=== PATIENT | female | born 1985 | race Caucasian/White ===

== ENCOUNTER 2017-10-22 11:30 | Inpatient (IN) | payer OTHER, SELFPAY ==
[2017-10-22 12:26] LABS: Hematocrit 38.1 % (37-47); Mean Corp Hgb Conc 34.1 g/gl (32-36); Mean Corpuscular Hgb 29.5 pg (27.0-32.0); Mean Corpuscular Volume 86.6 fL (81-99); Platelet Count 203 K/mm3 (150-450); RBC Distribution Width CV 21.5 % (11.6-14.6); RBC Distribution Width SD 64.6 fl (35.1-43.9); White Blood Count 6.6 K/mm3 (4.4-11.0)
[2017-10-22 12:27] LABS: Scan Indicated on CBC? Y/N YES- FLAGS NOTED
[2017-10-22 12:28] VITALS: BMI 39.4
[2017-10-22] MEDS: Lactated Ringers 1,000 ML 50 ML IV ×2 (12:30→14:56)
[2017-10-22] MEDS: miSOPROStol 25 MCG TABLET VAGINAL ×2 (13:09→17:17)
[2017-10-22 14:04] LABS: AST(SGOT) 9 U/L (15-37); Alanine Aminotransfer ALT/SGPT 8 U/L (13-56); Creatinine, Serum 0.57 mg/dL (0.55-1.02); EST Glomerular Filtration Rate 128 mL/min (>60); Est Glom Filt Rate - Afr Amer 155 mL/min (>60); Estimated Creatinine Clearance 99.89 ml/min; Uric Acid 6.1 mg/dL (2.6-6.0)
[2017-10-22 14:14] LABS: Protein, Urine (Random) 34.7 mg/dL (<11.9); Protein:Creat Ratio 205 mg/g CRE (0-200)
[2017-10-22 14:36] LABS: International Normalized Ratio 1.1; Prothrombin Time (Protime)PT. 13.7 SECONDS (11.7-14.9)
[2017-10-22 14:37] LABS: Partial Thromboplast Time 27.6 Seconds (24.1-36.2)
[2017-10-22] MEDS: fentaNYL-bupivacaine (epidural) 100 ML BAG EPIDURAL (19:56)
[2017-10-22] MEDS: Lactated Ringers 1,000 ML 150 ML IV (20:05)
[2017-10-22] MEDS: proMETHazine 25 MG/ML Syringe IV (20:39)
--- NOTE | 2017-10-22 20:41 | PCM.HP.OB ---
History Date of Admission: 10/22/17 Final SYLWIA: 10/31/17 Final SYLWIA Source: US <20 weeks Gestational age: 38 Weeks and 5 Days History of this : @ 38.5 wks with elevated BP in office on two separate occasions, elevated Uric acid but otherwise labs are unremarkable. Decision made for IOL due to Gestational HTN and Polyhydramnios. pt is dated by her LMP c/s first trimester u/s. Allergies No Known Allergies Allergy (Verified 10/22/17 12:29) Current Medications Acetaminophen (Tylenol) 325 - 650 mg PO Q4H PRN PRN PRN Reason: PAIN OR FEVER >100.4F Al Hydroxide/Mg Hydroxide (Mylanta Ii) 15 - 30 ml PO Q4H PRN PRN PRN Reason: INDIGESTION Citric Acid/Sodium Citrate (Bicitra) 30 ml PO UD PRN Lactated Ringer's () 1,000 mls @ 50 mls/hr IV .Q20H [facility] Last Admin: 10/22/17 14:56 Dose: 50 mls/hr Misoprostol (Cytotec) 25 mcg VAGINAL Q4H [facility] Stop: 10/23/17 10:01 Last Admin: 10/22/17 17:17 Dose: 25 mcg Nalbuphine HCl (Nubain) 5 - 10 mg IV Q3H PRN PRN PRN Reason: PAIN (4-10/10) Ondansetron HCl (Zofran) 4 mg IV Q8H PRN PRN PRN Reason: NAUSEA Promethazine HCl (Phenergan) 6.25 - 12.5 mg IV Q4H PRN PRN; Protocol PRN Reason: IF NAUSEA PERSISTS Sodium Chloride () 5 - 15 ml IV UD [facility] Last Admin: 10/22/17 14:56 Dose: Not Given Smoking Status: Never smoker Alcohol: None Drug Use: none Number of Fetus(es): 1 Review of Systems Eyes: Denies: Blurred vision, Vision Change HEENT: Denies: Head Aches Cardiovascular: Denies: Chest Pain Physical Exam General: Alert, Oriented x3 Abdomen: Soft, Non Tender, Gravid Estimated gestational size: Large for gestational age Presentation: Cephalic Cervix Dilation (cm): 0 Station: -3 Effacement (%): 50 Assessment/Plan 32yo @ 38.5 wks with Gestational HTN, polyhydramnios for IOL 1) admit to LD& 2) monitor FHR/TOCO 3) Cytotec 4) Labs reviewed- GBS neg, HIV neg, Hep B neg, rub imm, syhpilis neg, O+ 5) epidural for pain mgmt
--- NOTE | 2017-10-22 20:45 | HP.PCM_ITS ---
History Date of Admission: 10/22/17 Final SYLWIA: 10/31/17 Final SYLWIA Source: US <20 weeks Gestational age: 38 Weeks and 5 Days History of this : @ 38.5 wks with elevated BP in office on two separate occasions, elevated Uric acid but otherwise labs are unremarkable. Decision made for IOL due to Gestational HTN and Polyhydramnios. pt is dated by her LMP c/s first trimester u /s. Allergies No Known Allergies Allergy (Verified 10/22/17 12:29) Current Medications Acetaminophen (Tylenol) 325 - 650 mg PO Q4H PRN PRN PRN Reason: PAIN OR FEVER >100.4F Al Hydroxide/Mg Hydroxide (Mylanta Ii) 15 - 30 ml PO Q4H PRN PRN PRN Reason: INDIGESTION Citric Acid/Sodium Citrate (Bicitra) 30 ml PO UD PRN Lactated Ringer's () 1,000 mls @ 50 mls/hr IV .Q20H [facility] Last Admin: 10/22/17 14:56 Dose: 50 mls/hr Misoprostol (Cytotec) 25 mcg VAGINAL Q4H [facility] Stop: 10/23/17 10:01 Last Admin: 10/22/17 17:17 Dose: 25 mcg Nalbuphine HCl (Nubain) 5 - 10 mg IV Q3H PRN PRN PRN Reason: PAIN (4-10/10) Ondansetron HCl (Zofran) 4 mg IV Q8H PRN PRN PRN Reason: NAUSEA Promethazine HCl (Phenergan) 6.25 - 12.5 mg IV Q4H PRN PRN; Protocol PRN Reason: IF NAUSEA PERSISTS Sodium Chloride () 5 - 15 ml IV UD [facility] Last Admin: 10/22/17 14:56 Dose: Not Given Smoking Status: Never smoker Alcohol: None Drug Use: none Number of Fetus(es): 1 Review of Systems Eyes: Denies: Blurred vision, Vision Change HEENT: Denies: Head Aches Cardiovascular: Denies: Chest Pain Physical Exam General: Alert, Oriented x3 Abdomen: Soft, Non Tender, Gravid Estimated gestational size: Large for gestational age Presentation: Cephalic Cervix Dilation (cm): 0 Station: -3 Effacement (%): 50 Assessment/Plan 32yo @ 38.5 wks with Gestational HTN, polyhydramnios for IOL 1) admit to LD& 2) monitor FHR/TOCO 3) Cytotec 4) Labs reviewed- GBS neg, HIV neg, Hep B neg, rub imm, syhpilis neg, O+ 5) epidural for pain mgmt
--- NOTE | 2017-10-22 20:45 | PCM.PN.BLA ---
Progress Note called for FHR variable decelerations and bulging membranes- on exam membranes ruptured- light to moderate meconium noted. 8/100/-1. IFM placed. will continue to monitor- anticipate . epidural in place and patient is comfortable.
[2017-10-22] MEDS: Amnioinfusion- 0.9% NS 1,000 ML IV.SOLN. INTRA-UTER (21:18)
[2017-10-22] MEDS: Cefazolin 2 GM in 0.9% Normal Saline 100 ML IV (21:40)
[2017-10-22] MEDS: Oxytocin 30 units/NS 500 ml 30 UNITS/500 ML IV.SOLN 167 UNITS IV (21:40)
[2017-10-22] MEDS: Lactated Ringers 1,000 ML 100 ML IV (22:00)
--- NOTE | 2017-10-22 22:18 | OP.PCM_ITS ---
Delivery Classification: Stat Final SYLWIA: 10/31/17 Gestational age: 38 Weeks and 5 Days Indications: pt progressed to Fully dilated was having prolonged decelerations down to 60bpm station -1 position. attempted to push but Fetus did not tolerate. decision for Stat C/s called and OR team was mobilized at 2124 hrs. Indications for : Nonreassuring Status - prolonged decelerations Description of Procedure: Surgeon: Dr. Yvrose Ross Manufacturer'S Service Representative: Preeti Browning RN until Felicity COHEN arrived Preoperative diagnosis: Non reassuring heart rate- Prolonged decelerations Postoperative diagnosis: same, Live male infant Findings: Live male born at 2138hrs, Nuchal x 3 noted. Light to moderate meconium Anesthesia: epidural Complications: None Estimated blood loss:900 Implantable devices: None Pre OP abx: Ancef 2gram, Zithromax 500mg IV given after start of procedure Operative note: After informed consent was obtained the patient was taken the operating room. She was then placed in the supine position. She was prepped and draped in the normal sterile fashion. Anesthesia was found to be adequate. At this time a Pfannenstiel skin incision was made with a knife was carried down to the underlying layer of the fascia. The fascial incision was then extended laterally using curved Roberts scissor. Attention was then turned to the superior aspect of the fascial edge which was grasped with 2 straight [place] clamps tented up and the rectus muscle dissected off sharply using curved Roberts scissor. Attention was then turned to the inferior aspect where again Aurelia clamps were placed in the rectus muscles were tented up and the fascia was dissected off sharply using the curved Roberts scissor. Rectus muscles were then in the midline bluntly and peritoneum was entered bluntly. Gentle opposing traction was placed. At this time the vesicouterine peritoneum was identified. Scalpel was used to make a uterine incision in a low transverse fashion. The uterus was then entered bluntly gentle opposing traction was placed to extend this incision. Meconium fluid still noted. 's head was brought to the uterine incision nuchal x 3 was reduced and then head was delivered atraumatically. Cord was clamped and cut infant was handed to the waiting nursery team. The Placenta was removed from the uterus. The uterus was then removed from the abdominal cavity. The uterus was cleared of all clots and debris using a lap. At this time the uterine incision was reapproximated using #1 Vicryl in a running locked fashion followed by a second imbricating layer with #1 vicryl. Hemostasis was appreciated. Posterior cul-de- sac was then cleared of all clots and debris. Uterus was placed back in the abdominal cavity. Gutters were cleared of all clots and debris. Uterine incision was reevaluated and noted to be of excellent hemostasis. Matt placed. At this time the peritoneum was grasped with Kellys reapproximated using #2 Vicryl suture in a running fashion. Muscles then reapproximated using #2 Vicryl in a interrupted mattress suture fashion. Matt placed. Fascia was then reapproximated using #1 Vicryl in a running fashion. Matt placed in subcutaneous layer. then the Subcu layer was reapproximated with #2 0 plain gut suture in an interrupted fashion. Skin was was closed using 4-0 Monocryl in subq fashion. Dry sterile dressing was applied. Instrument lap needle count correct ?2. Anticipated normal postoperative course. Amniotic Membrane Rupture Type: Artificial - ruptured at time of vaginal exam Amniotic Fluid Description: Lightly stained meconium, Moderate meconium Placenta Disposition: [facility] Drain: Tracy to straight drain Cord Entanglement: - - Nuchal x 3, tight Nuchal Cord Compression: With compression Cord Vessel Description: 3 Vessels Esitmated Blood Loss (ml): 900 Gender: Male (1 minute): 8 (5 minute): 9 Delayed cord clamping: No Pre-op Antibiotic Given: - - zithromax 500mg given after start of surgery Pt instructed on risks of surgery: Bleeding, Anesthesia Risks, Infection, Injury to surrounding structure(s) including bowel and bladder Complications: None - Admit VTE Documentation VTE Present on Admission: Yes VTE Mechan Device Prophylaxis: SCD's VTE Pharm Prophylaxis ordered?: No
[2017-10-22 22:40] VITALS: BP 120/68; BP 124/57; PULSE 98; RESP 18; TEMP 36.7; O2SAT 98
[2017-10-22 23:00] VITALS: BP 118/66; BP 120/68; PULSE 109; RESP 18; TEMP 36.6; O2SAT 95
[2017-10-22 23:15] VITALS: BP 120/68; BP 122/74; PULSE 110; RESP 18; TEMP 37.2; O2SAT 95
[2017-10-22 23:30] VITALS: BP 112/82; BP 120/68; PULSE 93; RESP 16; TEMP 37.7; O2SAT 95
[2017-10-22 23:45] VITALS: BP 120/68; BP 129/62; PULSE 109; RESP 18; TEMP 37.3; O2SAT 94
[2017-10-23] VITALS (18 sets, daily range): BP systolic 109–144; BP diastolic 57–87; PULSE 92–102; RESP 16–18; TEMP 35.8–37.2; O2SAT 94–100
[2017-10-23] MEDS: Ondansetron 4 MG/2 ML Vial IV (02:58)
[2017-10-23 05:21] LABS: Hematocrit 31.6 % (37-47); Hemoglobin 10.7 g/dl (12.0-15.0); Mean Corp Hgb Conc 33.9 g/gl (32-36); Mean Corpuscular Hgb 29.7 pg (27.0-32.0); Mean Corpuscular Volume 87.8 fL (81-99); Mean Platelet Vol. 10.9 fl (6.2-12.0); Platelet Count 148 K/mm3 (150-450); RBC Distribution Width CV 21.5 % (11.6-14.6); RBC Distribution Width SD 64.8 fl (35.1-43.9); White Blood Count 10.3 K/mm3 (4.4-11.0)
[2017-10-23 05:23] LABS: Scan Indicated on CBC? Y/N YES- FLAGS NOTED
[2017-10-23] MEDS: Lactated Ringers 1,000 ML 100 ML IV ×2 (05:50→13:30)
[2017-10-23 05:55] LABS: Differential Comment SCAN
[2017-10-23] MEDS: Ketorolac 30 MG/ML Syringe IV ×3 (06:59→20:02)
--- NOTE | 2017-10-23 07:05 | PCM.PN.OB ---
Subjective: pt seen at bedside, doing well. pt reports good pain control. lochia mild. Denies CP, SOB, dizziness. breast feeding well. - Physical Exam General: Alert, Oriented x3 Abdomen: Soft, Non-Distended, - - fundus firm Extremities: No Calf Tenderness Vital Signs Temp Pulse Resp BP Pulse Ox 96.8 F L 96 18 124/86 H 94 10/23/17 06:40 10/23/17 06:40 10/23/17 06:40 10/23/17 06:40 10/23/17 06:40 Oxygen Delivery Method Room Air Weight: 91.716 kg Body Mass Index (BMI) 39.4 Intake and Output for Last 24 Hours 10/21/17 10/22/17 10/23/17 23:59 23:59 23:59 Intake Total 2246 / 2246 630 / 630 Output Total 330 / 330 Balance 2246 / 2246 300 / 300 Laboratory Tests Past 24 Hrs 10/22/17 10/22/17 10/22/17 12:00 12:00 13:30 WBC 6.6 RBC 4.40 Hgb 13.0 Hct 38.1 MCV 86.6 MCH 29.5 MCHC 34.1 RDW 21.5 H RDW Differential 64.6 H Plt Count 203 MPV 11.0 Differential Comment PT Cancelled INR Cancelled APTT Cancelled Creatinine Estim Creat Clear Calc Est GFR (MDRD) Af Amer Est GFR (MDRD) Non-Af Uric Acid AST ALT U Random Total Protein Urine Creatinine Protein/Creatinin Ratio Blood Type O POSITIVE Antibody Screen NEGATIVE 10/22/17 10/22/17 10/22/17 13:30 13:30 14:10 WBC RBC Hgb Hct MCV MCH MCHC RDW RDW Differential Plt Count MPV Differential Comment PT 13.7 INR 1.1 APTT 27.6 Creatinine 0.57 Estim Creat Clear Calc 99.89 Est GFR (MDRD) Af Amer 155 Est GFR (MDRD) Non-Af 128 Uric Acid 6.1 H AST 9 L ALT 8 L U Random Total Protein 34.7 H Urine Creatinine 169.00 Protein/Creatinin Ratio 205 H Blood Type Antibody Screen 10/23/17 05:00 WBC 10.3 RBC 3.60 L Hgb 10.7 L Hct 31.6 L MCV 87.8 MCH 29.7 MCHC 33.9 RDW 21.5 H RDW Differential 64.8 H Plt Count 148 L MPV 10.9 Differential Comment SCAN PT INR APTT Creatinine Estim Creat Clear Calc Est GFR (MDRD) Af Amer Est GFR (MDRD) Non-Af Uric Acid AST ALT U Random Total Protein Urine Creatinine Protein/Creatinin Ratio Blood Type Antibody Screen Medical Necessity - Tobacco Use Smoking Status: Never smoker Assessment/Plan POD#1, doing well routine care pain mgmt ambulation dc pope in evening regular diet
[2017-10-23] MEDS: Citalopram 20 MG Tablet PO (10:38)
[2017-10-23] MEDS: Loratadine 10 MG Tablet PO (10:38)
[2017-10-23] MEDS: 0.9% Saline Lock 10 ML Syringe IV ×2 (13:25→20:10)
[2017-10-23] MEDS: Ondansetron ODT 4 MG Tablet PO (13:37)
[2017-10-24] MEDS: Ketorolac 30 MG/ML Syringe IV ×4 (01:39→19:53)
[2017-10-24] MEDS: 0.9% Saline Lock 10 ML Syringe IV ×4 (01:40→19:57)
[2017-10-24 02:00] VITALS: BP 139/91; PULSE 83; RESP 16; TEMP 36.8
[2017-10-24 08:00] VITALS: BP 128/82; PULSE 95; RESP 18; TEMP 36.6; O2SAT 95
--- NOTE | 2017-10-24 09:01 | PCM.PN.OB ---
Subjective: pt seen at bedside, doing well. pt reports good pain control. lochia mild. Breast feeding. pt reports tolerating regular diet. passing flatus. - Physical Exam General: Alert, Oriented x3 Abdomen: Soft, Non-Distended, - - fundus firm. dressing site dry and intact Extremities: No Calf Tenderness Vital Signs Temp Pulse Resp BP Pulse Ox 97.8 F 95 18 128/82 H 95 10/24/17 08:00 10/24/17 08:00 10/24/17 08:00 10/24/17 08:00 10/24/17 08:00 Oxygen Delivery Method Room Air Weight: 91.716 kg Body Mass Index (BMI) 39.4 Intake and Output for Last 24 Hours 10/22/17 10/23/17 10/24/17 23:59 23:59 23:59 Intake Total 2246 / 2246 670 / 670 Output Total 330 / 330 800 / 800 Balance 2246 / 2246 340 / 340 -800 / -800 Medical Necessity - Tobacco Use Smoking Status: Never smoker Assessment/Plan POD#2, doing well routine care pain mgmt
[2017-10-24] MEDS: Senna/Docusate Sodium 1 Tablet PO (10:14)
[2017-10-24] MEDS: Loratadine 10 MG Tablet PO (10:14)
[2017-10-24] MEDS: Citalopram 20 MG Tablet PO (10:14)
[2017-10-24 13:50] VITALS: BP 129/87; PULSE 100; RESP 16; TEMP 36.2; O2SAT 95
[2017-10-24 19:59] VITALS: BP 135/87; PULSE 91; RESP 17; TEMP 36.4; O2SAT 96
--- NOTE | 2017-10-24 20:12 | NURSING ---
@ 2000 incision dressing removed for being saturated with water after pt took shower.
[2017-10-24] MEDS: oxyCODONE 5 MG Tablet PO (21:30)
[2017-10-25] MEDS: Ketorolac 30 MG/ML Syringe IV (02:05)
[2017-10-25] MEDS: oxyCODONE 5 MG Tablet PO ×2 (02:08→06:01)
[2017-10-25] MEDS: 0.9% Saline Lock 10 ML Syringe IV (02:09)
[2017-10-25 02:10] VITALS: BP 132/88; PULSE 87; RESP 18; TEMP 36.6; O2SAT 97
[2017-10-25 07:57] VITALS: BP 127/94; PULSE 98; RESP 16; TEMP 36.7; O2SAT 95
--- NOTE | 2017-10-25 08:56 | PCM.DC.SUM ---
Discharge Date and Diagnosis Date of Admission: 10/22/17 Date of Discharge: 10/25/17 - Primary Discharge Diagnosis Section Hospital Course and Treatment Consultations 10/22/17 11:43 Consult: Anesthesia Routine Comment: Reason For Exam: Operations: - - Section Summary of Care Provided: The patient is a 32 year old F [] Discharge Diet: No Restrictions Discharge Activity: May Not Drive, May not drive while taking narcotic pain medications., May Shower May resume sexual activity in: 6 weeks Weight Bearing Status: Weight bearing as tolerated Lifting Restrict to (lbs):: 10 Call your doctor if your incision/area has: Continuous Slow Oozing, Sudden Increased Bleeding, Increased Pain/ Swelling, Increased Redness, Foul Smelling Discharge, Swelling at the incision site Call your doctor if you observe: Fever of 101 or Higher, Coldness, Increased Pain, Numbness or Tingling, Change in Color, Inability to urinate, Inability to have a bowel movement, Using more than one pad per hour, Shortness of breath, Dizziness, Fainting spells, Swelling in the ankles, Chest pain, Prolonged hiccoughing, Increased palpitations (irregular heartbeat), Calf discomfort, Uncontrolled pain Suture Line Care: Avoid Pulling/Pushing, Avoid Pinching/Bending Cleanse incision/area with: Keep Dressing Clean & Dry Home Medications: Medications to take at Discharge Albuterol Inhaler [Ventolin Hfa] 2 puff INHALATION Q4H PRN PRN 04/15/17 Cetirizine HCl [Zyrtec] 10 mg PO DAILY 04/15/17 Citalopram [Celexa] 20 mg PO DAILY 04/15/17 Omeprazole [Prilosec] 20 mg PO DAILY 04/15/17 Vits [Prenatabs FA ] 1 tablet PO DAILY 04/15/17 Albuterol Aerosols [Ventolin Aerosols] 2.5 mg INHALATION Q4H PRN PRN vial.neb. 10/24/17 Loratadine [Claritin] 10 mg PO DAILY tablet 10/24/17 Naproxen [Naprosyn] 250 - 500 mg PO Q8H PRN PRN #30 tab 10/24/17 Oxycodone HCl/Acetaminophen [Percocet 5/325] 1 tab PO Q6H PRN PRN 7 Days #28 tab 10/24/17 Senna/Docusate Sodium [Senokot-S] 1 tab PO DAILY PRN #30 tab 10/24/17 SimETHICONE [Mylicon] 80 mg PO PCHS PRN #30 tab 10/24/17 Following Prescrptions Were Given to Patient: Oxycodone HCl/Acetaminophen [Percocet 5/325] 1 tab PO Q6H PRN PRN 7 Days #28 tab PRN Reason: Pain Naproxen [Naprosyn] 250 - 500 mg PO Q8H PRN PRN #30 tab PRN Reason: Mild Pain (-09/18) Senna/Docusate Sodium [Senokot-S] 1 tab PO DAILY PRN #30 tab PRN Reason: Constipation SimETHICONE [Mylicon] 80 mg PO PCHS PRN #30 tab PRN Reason: Indigestion/stomach pain Please Follow Up With: Yvrose Ross MD When: 2 weeks for incision check, 6 weeks for visit Disposition: Home Medical Necessity - Tobacco Use Smoking Status: Never smoker Meaningful Use Info Meaningful Use Diagnoses (Choose all that apply): None applicable
--- NOTE | 2017-10-25 09:00 | PCM.PROGNOTE ---
Subjective: Doing well per patient and nursing staff. Ambulating and taking PO without difficulty. Voiding and passing flatus. . Denies any headache, visual changes, chest pain, shortness of breath, leg pain, incisional pain or increased bleeding. Planning D/C home today. - Physical Exam General: Alert, Oriented x3, Cooperative Lungs: Clear to auscultation, Normal air movement, No rhonchi, No wheeze Cardiovascular: Regular rate, Regular Rhythm, No murmurs Abdomen: Bowel Sounds Present, Soft, Non Tender, - - Fundus firm 2 below U. Incision well appoximated with suture, dressing removed. Extremities: - - +1 edema to BLE. Zbigniew's negative. Neurological: Deep Tendon Reflexes 2+/4 and Symmetrical Psych/Mental Status: Normal Affect, Appropriate Vital Signs Temp Pulse Resp BP Pulse Ox 98.1 F 98 16 127/94 H 95 10/25/17 07:57 10/25/17 07:57 10/25/17 07:57 10/25/17 07:57 10/25/17 07:57 Oxygen Delivery Method Room Air Weight: 202 lb 3.2 oz Body Mass Index (BMI) 39.4 Intake and Output for Last 24 Hours 18 //18 10/25/17 23:59 23:59 23:59 Intake Total 670 / 670 Output Total 330 / 330 800 / 800 Balance 340 / 340 -800 / -800 Medical Necessity - Tobacco Use Smoking Status: Never smoker Assessment/Plan A: POD #2 for Section due to intolerance of labor P: 1) Discharge and instructions given. Planning D/C home today 2) Return in 2 weeks for incision and BP check. Return in 6 weeks for visit.
[2017-10-25] MEDS: Loratadine 10 MG Tablet PO (11:11)
[2017-10-25] MEDS: Citalopram 20 MG Tablet PO (11:12)
[2017-10-25] MEDS: Senna/Docusate Sodium 1 Tablet PO (11:12)
--- NOTE | 2017-10-25 12:06 | NURSING ---
1000 agree with student's assessment. Discharge talk done. Dr. Merritt states pt does not have to wait for Social service consult.
== END 2017-10-25 11:30 | disposition home or self-care (01) | DRG 765 ==
PROVIDERS: Admitting Provider Obstetrics & Gynecology; Family Provider Family Medicine; PCP Family Medicine; Visit Provider Obstetrics & Gynecology
DX: O76 Abnormality in fetal heart rate and rhythm complicating labor and delivery (principal); O34.33 Maternal care for cervical incompetence, third trimester; O14.94 Unspecified pre-eclampsia, complicating childbirth; O40.3XX0 Polyhydramnios, third trimester, not applicable or unspecified; O77.0 Labor and delivery complicated by meconium in amniotic fluid; O69.1XX0 Labor and delivery complicated by cord around neck, with compression, not applicable or unspecified; O99.013 Anemia complicating pregnancy, third trimester; D64.9 Anemia, unspecified; O99.513 Diseases of the respiratory system complicating pregnancy, third trimester; J45.909 Unspecified asthma, uncomplicated; O99.343 Other mental disorders complicating pregnancy, third trimester; F41.9 Anxiety disorder, unspecified; O99.613 Diseases of the digestive system complicating pregnancy, third trimester; K21.9 Gastro-esophageal reflux disease without esophagitis; O99.353 Diseases of the nervous system complicating pregnancy, third trimester; G47.419 Narcolepsy without cataplexy; Z3A.38 38 weeks gestation of pregnancy; Z37.0 Single live birth
CPT/HCPCS: 59025; 59050; 82565; 82570; 84156; 84450; 84460; 84550; 85027; 85610; 85730; 86850; 86900; 99218; J7030; J7120; A4216; G0378; J2405

== ENCOUNTER 2017-10-26 11:20 | Outpatient (CLI) | payer OTHER, SELFPAY | END 2017-10-26 13:00 | disposition home or self-care (01) | LOC: WPOUT 11:39 → WP 11:41 | PROVIDERS: Family Provider Family Medicine; PCP Family Medicine; Visit Provider Obstetrics & Gynecology | DX: Z39.1 Encounter for care and examination of lactating mother (principal) | CPT/HCPCS: 96152 ==

== ENCOUNTER 2017-10-29 21:03 | Inpatient (IN) | payer OTHER, SELFPAY ==
--- NOTE | 2017-10-29 22:29 | PCM.HP.OB ---
- Problem List (1) Pre-eclampsia, Status: Acute History Date of Admission: 10/29/17 Pertinent Past Medical History: Patient induced for gestational HTN and delivered via section due to intolerance of labor on 10/22/17. Upon discharge no signs of pre-eclampsia and BP 127/94. 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 Ate good throughout the day, urination as normal, and no other complaints. took BP at home and was 136/90. Patient did not take any Tylenol for headache and advised to take 2 extra strength Tylenol. If no improvement in headache to come to ER. Consulted and agreed with plan. Patient then took patient BP approximately 15 minutes later and BP was in the 150 systolic and came to ER. Upon arrival in ER BP was 160/116 and patient transported up to labor and delivery unit. Patient denies any current visual changes, scotoma, chest pain, shortness of breath, or right upper quadrant pain. present with baby. Allergies No Known Allergies Allergy (Verified 10/22/17 12:29) Smoking Status: Never smoker Alcohol: None Drug Use: none Review of Systems Constitutional: Denies: Chills, Fever, Weight Change Eyes: Denies: Blurred vision HEENT: Reports: Head Aches - Rating pain 4-5/10. No improvement with Ibuprofen, rest, and hydration. Cardiovascular: Denies: Chest Pain, Palpitations Respiratory: Denies: Cough, Shortness of breath at rest, Sputum production Gastrointestinal: Reports: Nausea. Denies: Abdominal Pain, Vomiting Genitourinary: Denies: Dysuria Neurological: Denies: Blurred vision, Focal weakness, Numbness, Tingling Physical Exam General: Alert, Oriented x3, No apparent distress Cardiovascular: Regular rate, Regular Rhythm, No murmurs Lungs: Clear to auscultation, No rhonchi, No wheeze Abdomen: Bowel Sounds Present, Non Tender, - - No RUQ pain Extremities:: Deep tendon reflexes - +3/4 bilatearlly brisk. Clonus +3 beats bilaterally. , Other - +1 BLE edema, non pitting. Assessment/Plan Active and Suspected Problems Pre-eclampsia, (Acute) A: pre-eclampsia Post op day 7 section P: 1) notified of patient with severe hypertension and patient statu. Consulted for referral of management of patient after initial evaluation. 2) Per to start HTN protocol. Initiate Magnesium Sulfate 6gm bolus then 2gm per hour for 24 hours. 3) Pre-Eclampsia labs Bertha Browning, MSN, FACTORY MACHINE COMPUTER OPERATOR, CNM
--- NOTE | 2017-10-29 22:34 | NURSING ---
Patient arrived reporting headache, feeling shaky, and lightheaded since 1600 today. Last BP at home was 158/110 per . Lila Browning at bedside to assess patient. Htn protocol initiated, RN attempting to gain iv access at this time.
[2017-10-29 22:37] VITALS: BMI 35.2
[2017-10-29] MEDS: Lactated Ringers 1,000 ML 15 ML IV (22:50)
[2017-10-29 22:56] VITALS: BP 157/93; PULSE 92; RESP 18; TEMP 36.6; O2SAT 99
[2017-10-29 23:15] VITALS: BP 160/94; PULSE 113; RESP 18; O2SAT 96
[2017-10-29 23:19] LABS: Protein, Urine (Random) 23.2 mg/dL (<11.9); Protein:Creat Ratio 141 mg/g CRE (0-200)
[2017-10-29 23:30] VITALS: BP 143/92; PULSE 111; RESP 16; TEMP 36.6; O2SAT 98
[2017-10-29 23:34] LABS: Hematocrit 38.5 % (37-47); Hemoglobin 12.9 g/dl (12.0-15.0); Mean Corp Hgb Conc 33.5 g/gl (32-36); Mean Corpuscular Hgb 29.3 pg (27.0-32.0); Mean Corpuscular Volume 87.5 fL (81-99); Mean Platelet Vol. 9.1 fl (6.2-12.0); Platelet Count 305 K/mm3 (150-450); RBC Distribution Width CV 20.2 % (11.6-14.6); RBC Distribution Width SD 63.4 fl (35.1-43.9); White Blood Count 7.9 K/mm3 (4.4-11.0)
[2017-10-29] MEDS: Magnesium Sulfate 20 GM/500 ML BAG IV (23:34)
[2017-10-29 23:35] LABS: Scan Indicated on CBC? Y/N YES- FLAGS NOTED
[2017-10-29 23:45] VITALS: BP 149/96; PULSE 102; RESP 16; O2SAT 99
[2017-10-30] VITALS (28 sets, daily range): BP systolic 107–152; BP diastolic 66–98; PULSE 75–100; RESP 16–18; TEMP 35.9–36.7; O2SAT 85–100
--- NOTE | 2017-10-30 | NURSING ---
Lila carrillo at rn station, all labs reviewed including elevated uric acid
[2017-10-30 00:09] LABS: AST(SGOT) 25 U/L (15-37); Alanine Aminotransfer ALT/SGPT 31 U/L (13-56); EST Glomerular Filtration Rate 122 mL/min (>60); Est Glom Filt Rate - Afr Amer 147 mL/min (>60); Uric Acid 6.7 mg/dL (2.6-6.0)
[2017-10-30] MEDS: proMETHazine 25 MG/ML Syringe 12.5 MG IV (00:37)
[2017-10-30 01:01] LABS: International Normalized Ratio 1.1; Prothrombin Time (Protime)PT. 14.3 SECONDS (11.7-14.9)
--- NOTE | 2017-10-30 08:25 | PCM.PN.OB ---
Patient Problems: Active and Suspected Problems Pre-eclampsia, (Acute) Subjective: Patient feeling better this am. She still has a mild headache but it's better. - Physical Exam General: Alert, Oriented x3 Abdomen: Soft, Non Tender, Non-Distended - incision - c/d/i Extremities: No edema, No Calf Tenderness Vital Signs Temp Pulse Resp BP Pulse Ox 97.1 F L 85 16 126/87 H 98 10/30/17 04:48 10/30/17 06:45 10/30/17 07:57 10/30/17 06:45 10/30/17 06:45 Oxygen Delivery Method Room Air Weight: 180 lb Body Mass Index (BMI) 35.2 Intake and Output for Last 24 Hours 10/28/17 10/29/17 10/30/17 23:59 23:59 23:59 Intake Total 165 / 165 440 / 440 Output Total 300 / 300 Balance 165 / 165 140 / 140 Laboratory Tests Past 24 Hrs 10/29/17 10/29/17 10/29/17 22:30 23:15 23:30 WBC 7.9 RBC 4.40 Hgb 12.9 Hct 38.5 MCV 87.5 MCH 29.3 MCHC 33.5 RDW 20.2 H RDW Differential 63.4 H Plt Count 305 MPV 9.1 Differential Comment 1+ ANISO PT Cancelled INR Cancelled APTT Cancelled Creatinine Estim Creat Clear Calc Est GFR (MDRD) Af Amer Est GFR (MDRD) Non-Af Uric Acid AST ALT U Random Total Protein 23.2 H Urine Creatinine 164.00 Protein/Creatinin Ratio 141 10/29/17 10/30/17 23:30 00:30 WBC RBC Hgb Hct MCV MCH MCHC RDW RDW Differential Plt Count MPV Differential Comment PT 14.3 INR 1.1 APTT 29.0 Creatinine 0.60 Estim Creat Clear Calc 94.90 Est GFR (MDRD) Af Amer 147 Est GFR (MDRD) Non-Af 122 Uric Acid 6.7 H AST 25 ALT 31 U Random Total Protein Urine Creatinine Protein/Creatinin Ratio Medical Necessity - Tobacco Use Smoking Status: Never smoker Assessment/Plan Active and Suspected Problems Pre-eclampsia, (Acute) 32yo female HD#2 re-admission for severe preeclampsia Continue Mg for 24hrs. BP's currently normal. All labs & vitals reviewed. Plan of care reviewed with patient & .
[2017-10-30] MEDS: Magnesium Sulfate 20 GM/500 ML BAG IV (10:48)
--- NOTE | 2017-10-30 13:29 | NURSING ---
at 1300 assessment, pt sleeping. arousable with name call, appropriate responses. P ox 90%. Peace carrillo CNM called and informed of 90%sat. O2 ordered to keep pox 95% or higher. O2 started at 2L per NC, Pox 96%. Explained to pt and reason for O2 and they state understanding.
--- NOTE | 2017-10-30 13:37 | NURSING ---
pt awake, nursing infant. Pox 99 with o2 off.
--- NOTE | 2017-10-30 14:23 | NURSING ---
1400 pox 92%. O2 added at 1L per NC. 1420 Pox 97% at 1 L
--- NOTE | 2017-10-30 14:30 | NURSING ---
1000 While rounding, Mom states that feedings have gone well and Mom is producing 3-4 oz's of milk. Parents very happy with how well she is doing with milk supply. Encouraged to call if any further questions or concerns with feedings. Tino FRANCISCO
[2017-10-30] MEDS: Acetaminophen 500 MG Tablet 1000 MG PO (16:34)
--- NOTE | 2017-10-30 20:50 | NURSING ---
Dr Parada updated on patient reporting blurry vision in both eyes and drooping eyes. Patient now needing assistance x2 to bathroom. Reflexes +1, Supplemental O2 used while sleeping. Orders received to discontinue Mg infusion, no PO maintenance medication ordered at this time. AM CBC canceled. Plan to call Dr parada if BP >160/110 overnight.
--- NOTE | 2017-10-30 22:54 | NURSING ---
Dr Huerta updated on patient. Aware of patient reporting burning in chest. Vitals stable. Eye drooping resolved. Patient states she is feeling better and feels pain is muscle related. Prilosec and mylanta ordered.
[2017-10-30] MEDS: Pantoprazole Sodium 20 MG Tablet PO (23:34)
[2017-10-31 02:20] VITALS: BP 111/86; PULSE 75; RESP 16; TEMP 36.4; O2SAT 96
[2017-10-31] MEDS: Acetaminophen 500 MG Tablet 1000 MG PO (02:38)
--- NOTE | 2017-10-31 05:45 | PCM.PN.OB ---
Patient Problems: Active and Suspected Problems Pre-eclampsia, (Acute) Subjective: Denies headache or blurry vision. - Physical Exam General: Alert, Oriented x3 Abdomen: Soft, Non Tender, Non-Distended Extremities: No Calf Tenderness Vital Signs Temp Pulse Resp BP Pulse Ox 97.6 F L 75 16 111/86 H 96 10/31/17 02:20 10/31/17 02:20 10/31/17 02:20 10/31/17 02:20 10/31/17 02:20 Oxygen Flow Rate (L/min) 1 Oxygen Delivery Method Room Air Weight: 180 lb Body Mass Index (BMI) 35.2 Intake and Output for Last 24 Hours 10/29/17 10/30/17 10/31/17 23:59 23:59 23:59 Intake Total 165 / 165 2401 / 2401 Output Total 2300 / 2300 Balance 165 / 165 101 / 101 Medical Necessity - Tobacco Use Smoking Status: Never smoker Assessment/Plan Active and Suspected Problems Pre-eclampsia, (Acute) HD#3 patient re-admitted with PP severe preeclampsia BP's normal s/p magnesium. Will monitor throughout the day. Possible discharge home later today if BP's remain normal.
[2017-10-31 05:50] VITALS: BP 111/65; PULSE 81; RESP 16; TEMP 36.6; O2SAT 97
--- NOTE | 2017-10-31 05:50 | NURSING ---
Patient now reports blurry vision, headache, and muscle weakness resolved.
--- NOTE | 2017-10-31 05:51 | DCINST_ITS ---
Discharge Diet: No Restrictions Discharge Activity: May not drive while taking narcotic pain medications., May Shower May resume sexual activity in: 4-6 weeks Weight Bearing Status: Weight bearing as tolerated Additional Instructions: If you experience any of the following, contact your healthcare provider. * Bleeding that soaks a pad every hour for 2 hours * Fever 100.4 or higher * Unrelieved incision or abdominal pain * Swelling, redness, discharge or bleeding from your incision or episiotomy site * Your incision begins to separate * Problems urinating (including inability to urinate or burning while urinating) . * Visual changes * Severe headache * Flu-like symptoms * Pain or redness in one of both of your breasts * Pain, warmth, tenderness or swelling in your legs, especially the calf area * Frequent nausea and vomiting * Symptoms of depression or anxiety If you experience any of the following, call 911 or go to the nearest Emergency Room. * Chest pain * Problems breathing * Seizure activity * Partial or complete paralysis of a body part, slurred speech, weakness or drooping of the face, or a sudden inability to walk or hold your balance PLEASE CALL THE OFFICE TOMORROW TO SCHEDULE A BLOOD PRESSURE CHECK THIS WEEK Allergies/Adverse Reactions: Allergies No Known Allergies Allergy (Verified 10/22/17 12:29) Medications to take at Discharge Albuterol Inhaler [Ventolin Hfa] 2 puff INHALATION Q4H PRN PRN 04/15/17 Cetirizine HCl [Zyrtec] 10 mg PO DAILY 04/15/17 Citalopram [Celexa] 20 mg PO DAILY 04/15/17 Omeprazole [Prilosec] 20 mg PO DAILY 04/15/17 Vits [Prenatabs FA ] 1 tablet PO DAILY 04/15/17 Albuterol Aerosols [Ventolin Aerosols] 2.5 mg INHALATION Q4H PRN PRN vial.neb. 10/24/17 Naproxen [Naprosyn] 250 - 500 mg PO Q8H PRN PRN #30 tab 10/24/17 Oxycodone HCl/Acetaminophen [Percocet 5-325] 1 tab PO Q6H PRN PRN 7 Days #28 tab 10/24/17 Follow-Up: Call to make an appointment with your doctor for an incision check in 1-2 weeks. You will also need a 6 week post- follow up appointment. Primary Care Physician: Robinson Camacho [Primary Care Provider] -
[2017-10-31 08:00] VITALS: BP 129/74; PULSE 86; RESP 18; TEMP 36.1; O2SAT 98
[2017-10-31] MEDS: Citalopram 20 MG Tablet PO (11:22)
[2017-10-31 11:29] VITALS: BP 107/71; PULSE 81; RESP 18
[2017-10-31] MEDS: 0.9% Saline Lock 10 ML Syringe IV (12:43)
[2017-10-31 14:00] VITALS: BP 115/72; PULSE 90; RESP 18
== END 2017-10-31 14:40 | disposition home or self-care (01) | DRG 776 ==
LOC: WP 22:16
PROVIDERS: Advanced Practice Midwife; Admitting Provider Obstetrics & Gynecology; Family Provider Family Medicine; PCP Family Medicine; Visit Provider Obstetrics & Gynecology
DX: O14.15 Severe pre-eclampsia, complicating the puerperium (principal)
CPT/HCPCS: 36415; 82565; 82570; 84156; 84450; 84460; 84550; 85027; 85610; 85730; J7120; A4216

== ENCOUNTER → 2019-01-19 10:14 | Outpatient (CLI) | payer OTHER, SELFPAY ==
[2019-01-19 12:44] LABS: Absolute Lymphocyte Count 2.47 X10^3/ul (0.83-4.51); Absolute Neutrophil Count 2.4 X10^3/uL (2.0-7.7); Basophil# 0.05 X10^3/uL; Basophil% 0.9 % (0-1); Eosinophil# 0.18 X10^3/uL; Eosinophils% 3.3 % (0-5); Hematocrit 41.4 % (37-47); Hemoglobin 13.9 g/dl (12.0-15.0); Lymphocyte # 2.47 X10^3/ul (4.0); Lymphocyte % 45.8 % (19-41); Mean Corp Hgb Conc 33.6 g/gl (32-36); Mean Corpuscular Hgb 29.2 pg (27.0-32.0); Mean Platelet Vol. 10.5 fl (6.2-12.0); Monocyte# 0.34 X10^3/uL; Monocyte% 6.3 % (0-10); Neutrophil # 2.35 X10^3/uL (2.7-7.7); Neutrophil % 43.7 % (47-70); Platelet Count 269 K/mm3 (150-450); RBC Distribution Width CV 12.6 % (11.6-14.6); RBC Distribution Width SD 39.7 fl (35.1-43.9); Red Blood Count 4.76 M/mm3 (4.2-5.4); White Blood Count 5.4 K/mm3 (4.4-11.0)
[2019-01-19 12:58] LABS: ALB/GLOB Ratio 0.9 RATIO (0.9-2.4); AST(SGOT) 9 U/L (15-37); Alanine Aminotransfer ALT/SGPT 13 U/L (13-56); Albumin, Serum 3.5 g/dL (3.2-5.0); Alkaline Phosphatase 72 U/L (45-117); Anion Gap 7 (5-15); BUN 11 mg/dL (7-18); BUN/Creat Ratio 15.1 RATIO (10-20); Calcium,Total 8.9 mg/dL (8.5-10.1); Chloride 104 mmol/L (98-107); Creatinine, Serum 0.73 mg/dL (0.55-1.02); EST Glomerular Filtration Rate 96 mL/min (>60); Est Glom Filt Rate - Afr Amer 116 mL/min (>60); Ferritin 68 ng/mL (8-252); Globulin 3.8 g/dL (2.2-4.2); Glucose 84 mg/dL (74-106); Iron 114 ug/dL (50-170); Iron Binding Capacity,Total 431 ug/dL (250-450); POSITIVE COUNT NO; POSITIVE DIFFERENTIAL NO; POSITIVE MORPHOLOGY NO; Potassium 4.2 mmol/L (3.5-5.1); Protein, Total 7.3 g/dL (6.4-8.2); Sodium Level 137 mmol/L (136-145); Thyroid Stim Hormone (TSH) 2.22 uIU/mL (0.358-3.74)
[2019-01-19 13:05] LABS: Vitamin B12 1308 pg/mL (211-911); Vitamin D,25 Hydroxy 14.3 ng/mL (29.95-100.01)
== END ==
PROVIDERS: Family Provider Family Medicine; PCP Family Medicine; Visit Provider Family Medicine
DX: R53.83 Other fatigue (principal); Z86.39 Personal history of other endocrine, nutritional and metabolic disease
CPT/HCPCS: 36415; 80053; 82306; 82607; 82728; 83540; 83550; 84443; 85025

== ENCOUNTER → 2019-05-16 09:06 | Outpatient (CLI) | payer OTHER, SELFPAY ==
[2019-02-01 14:52] VITALS: BMI 35.2
== END ==
PROVIDERS: Family Provider Family Medicine; PCP Family Medicine; Referring Provider Family Medicine; Visit Provider Family Medicine
DX: E55.9 Vitamin D deficiency, unspecified (principal)
CPT/HCPCS: 36415

== ENCOUNTER 2019-06-14 06:29 | Day surgery (SDC) | payer OTHER, SELFPAY ==
[2019-02-01 14:52] VITALS: BMI 35.2
--- NOTE | 2019-06-14 | GASB_PTH ---
PATIENT: PARISA HAYWARD LOC: EN U#:[id number] AGE/SX: 33/F ROOM: RE06/14/[address]: Dr. Juwan Bautista MD : 1985 BED: DIS: 06/14/2019 SPEC #: [id number] RECD: 06/14/19 14:22 STATUS: SELENA GLORIA #: [id number] CLAUDIA: 06/14/19 00:[address]: Juwan Bautista DEPT: SURGICAL PATHOLOGY RECD BY: Sam Cagle ENTERED: 06/14/19 14:22 SP TYPE: Gastric Bx OTHR DR: Dr. Robinson Santos MD Tissues: Gastric mucous membrane Procedures: Surgery Specimen Level IV HEADER OPER[place] [place] DIAGNOSIS: GERD, heartburn TISSUE SUBMITTED: Antrum biopsy for H. pylori and path MICROSCOPIC DIAGNOSIS Antrum biopsy: Mild to moderate gastritis. See microscopic description and comment. SJ:francesca 06/15/19 COMMENT The results of immunohistochemistry for Helicobacter pylori will be reported separately ([id number]). MICROSCOPIC DESCRIPTION Slides are reviewed. The specimen shows fragments of gastric mucosa with chronic inflammatory cells infiltrates in the lamina propria consisting of lymphocytes and plasma cells, consistent with mild to moderate chronic gastritis. A minute lymphoid aggregate is also noted, favor benign. GROSS DESCRIPTION Received in fixative is one container labeled with the patient's name and designated gastric antrum. The specimen consists of one irregular fragment of light field soft tissue that measures 0.5 x 0.3 x 0.1 cm. The specimen is totally submitted in one cassette. / AM:francesca 06/14/19 TC:3 CPT: 59050
[2019-06-14 06:56] LABS: Internal QC Validated? YES +Cl - CLEAR BKGD; Pregnancy, Urine Negative Negative
[2019-06-14 07:00] VITALS: BP 119/80; PULSE 80; RESP 16; TEMP 36.4; O2SAT 97; BMI 33.3
[2019-06-14] MEDS: Lactated Ringers 1,000 ML 100 ML IV (07:12)
--- NOTE | 2019-06-14 07:21 | HP.PCM_ITS ---
History and Physical Date of Admission: 06/14/19 [facility] [address] [place] [address] MR#: [id number] Acct: [id number] Name: PARISA HAYWARD Rep #: [id number] : 1985 Provider: Juwan morris MD Age/Sex: 33/F Location: [facility] Status: Signed Intake Vital Signs 02/01/19 Body Mass Index (BMI) 35.2 02/01/19 Height 5 ft 1 in 02/01/19 Weight: 172 lb 02/01/19 Body Mass Index (BMI) 32.5 02/01/19 Blood Pressure 104/73 02/01/19 Blood Pressure Location Rt brachial 02/01/19 Respiratory Rate 18 02/01/19 Pulse Rate 85 02/01/19 Pulse Source Monitor 02/01/19 Temperature 98.3 F 02/01/19 Pulse Ox 98 02/01/19 Oxygen Delivery Method room air Intake Visit Reasons: Discuss EGD/GERD Chief Complaint: headache 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 10/24/17 [Rx Confirmed 02/01/19] Naproxen [Naprosyn] 250 - 500 mg PO Q8H PRN PRN #30 tab 10/24/17 [Rx Confirmed 02/01/19] cholecalciferol (vitamin D3) 50,000 unit capsule 50,000 unit PO QWEEK 02/01/19 [History Confirmed 02/01/19] norethindrone acetate 1 mg-ethinyl estradiol 20 mcg tablet 1 tab PO DAILY 02/01/19 [History Confirmed 02/01/19] [facility] Medical History GERD (gastroesophageal reflux disease) (Acute) Pre-eclampsia, (Acute) Surgical History History of section (Acute) Family History Mother Colon cancer Grandmother Diabetes Heart disease Grandfather Diabetes Heart disease Social History (Updated 02/06/19 @ 13:15 by Juwan Bautista MD) Smoking Status: Never smoker alcohol intake: current alcohol intake frequency: a few times a month substance use type: does not use HPI HPI Surgical H&P: Yes HPI: PARISA HAYWARD, is a 33 F who presents to the office today for evaluation for heartburn. Patient has a rather long-standing history of heartburn going back all the way to 2009 she has had substernal burning waterbrash symptoms in the back of her throat when she wakes up when she bends over to tie her shoes she often regurgitates. She has been taking omeprazole for the last 8 to 9 years. She has never had an EGD. Patient notes that over the last 5 years she has been diagnosed with asthma and has been on Advair. ROS General General: Yes fatigue; no weight change, appetite, colon cancer, breast cancer or weakness HEENT HEENT: No difficulty swallowing, eye injury, eye surgery, swollen glands or hoarseness Endo Endocrine: No thyroid disease, diabetes mellitus, thyroid cancer, Hair loss, heat intolerance or cold intolerance Skin Skin: No rash or changing moles Breast Breast: No left breast lump, right breast lump, nipple discharge, breast pain, abnormal mammogram, abnormal US or breast enlargement Musc Musculoskeletal: Yes back problems; no arthritis, rheumatoid arthritis, gout or joint pain Cardio Cardiovascular: No murmur, pacemaker, heart disease, atrial fibrillation, high blood pressure, heart attack, heart stent, palpitations, shortness of breat with exertion or chest pain Psych Psychiatric: Yes anxiety; no depression or hearing voices Resp Respiratory: Yes shortness of breath, Yes sleep apnea, Yes cough, No COPD, Yes asthma, No emphysema, No wheezing Gastro Gastrointestinal: Yes abdominal pain, Yes nausea or vomiting, No diarrhea, No constipation, No blood in stool, Yes acid reflux, Yes hemorrhoids, No ulcers, No gallbladder problem, No black,tarry stools Jossue Hematologic: No blood thinners, No blood disorders, No bleeding, No anemia, No blood clots Neuro Neurologic: No system reviewed and no additional complaints, except as docu, No as per HPI, No abnormal walking, No abnormal hearing, No abnormal movements, No abnormal speech, No behavioral changes, No burning sensations, No confusion, No seizure-like activity, No unsteadiness, No dizziness, No localized weakness, No frequent falls, No headache(s), No lack of coordination, No loss of vision, No memory loss, No numbness, No other visual disturbances, No radiating pain, No restless legs, No sensory deficit, No fainting, No tingling, No tremor(s), No weakness, No other Exam Const General: no acute distress, well developed, well hydrated Orientation: oriented to person, oriented to place, oriented to time [facility] Head: normocephalic, atraumatic Ears: external ears normal Mouth: moist mucous membranes Eyes Sclera: sclerae normal Pupils: normal by confrontation Neck Neck: no lymphadenopathy noted Neck mass: No Thyroid: thyroid normal, symmetrical Chest Chest palpation & inspection: normal inspection of the chest Breast Palpation: No nipple discharge Resp Effort & Inspection: normal respiratory effort Auscultation: clear to auscultation bilaterally Percussion: percussion normal Cardio Rate: regular rate Rhythm: regular rhythm Heart Sounds: no murmurs GI Palpation: soft, no hepatosplenomegaly, no masses, nontender Rectal Exam: other Other: Rectal exam deferred. Extrem General: normal to inspection, no clubbing, cyanosis or edema Assessment & Plan Problems 1. Gastroesophageal reflux disease, esophagitis presence not specified K21.9 2. Heartburn R12 Plan I have discussed the above with the patient. I have offered the patient esophagogastroduodenoscopy for evaluation. I have explained the risks/benefits of the procedure and described the procedure. I have discussed the risks with the patient, including but not limited to: infection, bleeding, perforation of the GI tract requiring emergency surgery, inability to complete the procedure, injury to any internal organs, complications of anesthesia, etc. - the patient understands and agrees to proceed. I have answered all the patient's questions to the patient's satisfaction and the patient has no further questions. The patient has been given instructions for the colon cleansing preparation. Medications New: cholecalciferol (vitamin D3) 50,000 units PO QWEEK norethindrone ac-eth estradiol 1-20 mg-mcg 1 tab PO DAILY Coding Level of Care Code Off vis,new,level 3 Diagnoses Gastroesophageal reflux disease, esophagitis presence not specified K21.9 ??Esophagitis presence: esophagitis presence not specified Heartburn R12 I have re-examined the patient. There are no clinical changes since date of exam.
--- NOTE | 2019-06-14 07:30 | IMM_PTH ---
PATIENT: PARISA HAYWARD LOC: EN U#:[id number] AGE/SX: 33/F ROOM: RE06/14/[address]: Dr. Juwan Bautista MD : 1985 BED: DIS: 06/14/2019 SPEC #: [id number] RECD: 06/14/19 15:28 STATUS: SELENA GLORIA #: [id number] CLAUDIA: 06/14/19 07:[address]: Juwan Bautista DEPT: IMMUNOHISTOCHEMISTRY RECD BY: Brittanie Sutton ENTERED: 06/14/19 15:28 SP TYPE: IMMUNO OTHR DR: Dr. Robinson Santos MD Tissues: Stomach, NOS Procedures: H Pylori (initial) PHYSICIAN & INSTITUTION [place] [id number] SPECIMEN INFORMATION: Tissue Source: Antrum biopsy Clinical Info: GERD, heartburn Specimen Number: [id number] CPT code: 83970 METHODOLOGY: Deparaffinized sections of prefer/formalin-fixed tissue or PAP/DQ stained slides are incubated with monoclonal/polyclonal antibodies/oligonucleotide probes. Localization is made via biotin free immunoperoxidase method. Appropriate controls are performed and reacted as expected. Results on target cell population are indicated in the following table: RESULTS: ANTIBODY / CLONE RESULT H Pylori (polyclonal) negative These tests were developed and their performance characteristics determined by [facility]. They may not have been cleared or approved by the [place].S. Food and Drug Administration. The FDA has determined that such clearance or approval is not necessary. INTERPRETATION: Antrum biopsy: Negative for Helicobacter pylori organisms. SJ:francesca 06/15/19
--- NOTE | 2019-06-14 07:48 | OP.EGD_ITS ---
Patient Name: Jasmin Ravi Procedure Date: 06/14/2019 7:25 AM Date of : 1985 Age: 33 Procedure: Upper GI endoscopy Indications: Heartburn, Gastro-esophageal reflux disease Providers: Juwan Bautista MD Referring MD: Robinson Santos Medicines: See the Anesthesia note for documentation of the administered medications Patient Profile: This is a 33 year old female. Refer to note in patient chart for documentation of history and physical. Complications: No immediate complications. Procedure: Pre-Anesthesia Assessment: - Prior to the procedure, a History and Physical was performed, and patient medications and allergies were reviewed. The patient's tolerance of previous anesthesia was also reviewed. The risks and benefits of the procedure and the sedation options and risks were discussed with the patient. All questions were answered, and informed consent was obtained. Prior Anticoagulants: The patient has taken no previous anticoagulant or antiplatelet agents. ASA Grade Assessment: II - A patient with mild systemic disease. After reviewing the risks and benefits, the patient was deemed in satisfactory condition to undergo the procedure. After obtaining informed consent, the endoscope was passed under direct vision. Throughout the procedure, the patient's blood pressure, pulse, and oxygen saturations were monitored continuously. The gastroscope was introduced through the mouth, and advanced to the second part of duodenum. The upper GI endoscopy was accomplished without difficulty. The patient tolerated the procedure well. Scope In: 7:34:51 AM Scope Out: 7:37:39 AM Total Procedure Duration Time 0 hours 2 minutes 48 seconds Findings: The Z-line was regular and was found 35 cm from the incisors. Localized mild inflammation characterized by erythema and linear erosions was found in the prepyloric region of the stomach. Biopsies were taken with a cold forceps for Helicobacter pylori testing. The examined duodenum was normal. Impression: - Z-line regular, 35 cm from the incisors. - Gastritis. Biopsied. - Normal examined duodenum. Recommendation: - Await pathology results. - Repeat upper endoscopy (date not yet determined) for surveillance. - Return to physician reading assistant in 1 week. - Continue present medications. Procedure Code(s): --- Professional --- 74650, Esophagogastroduodenoscopy, flexible, transoral; with biopsy, single or multiple Diagnosis Code(s): --- Professional --- K29.70, Gastritis, unspecified, without bleeding R12, Heartburn K21.9, Gastro-esophageal reflux disease without esophagitis CPT copyright 2017 [employer]. All rights reserved. The codes documented in this report are preliminary and upon food service coordinator review may be revised to meet current compliance requirements. MD Juwan Alex MD 06/14/2019 7:48:09 AM This report has been signed electronically. Number of Addenda: 0 Note Initiated On: 06/14/2019 7:25 AM
[2019-06-14 07:50] VITALS: BP 119/80; BP 94/53; PULSE 80; RESP 16; TEMP 36.3; O2SAT 94
[2019-06-14 07:55] VITALS: BP 119/80; BP 96/56; PULSE 70; RESP 16; O2SAT 95
[2019-06-14 08:00] VITALS: BP 119/80; BP 94/54; PULSE 72; RESP 16; O2SAT 98
[2019-06-14 08:05] VITALS: BP 119/80; BP 97/64; PULSE 68; RESP 16; TEMP 36.3; O2SAT 98
[2019-06-14 08:23] VITALS: BP 119/80
== END 2019-06-14 08:32 | disposition home or self-care (01) ==
LOC: EN 06:30 → AC 06:31
PROVIDERS: Anesthesiology; Family Provider Family Medicine; PCP Family Medicine; Referring Provider Family Medicine; Visit Provider Surgery
PROC: 0DJ08ZZ Inspection of Upper Intestinal Tract, Via Natural or Artificial Opening Endoscopic (ICD-10-PCS; CPT 43235; principal; 2019-06-14 07:25)
DX: K29.70 Gastritis, unspecified, without bleeding (principal); K21.9 Gastro-esophageal reflux disease without esophagitis; F41.9 Anxiety disorder, unspecified; J45.909 Unspecified asthma, uncomplicated
CPT/HCPCS: 43239; 81025; 88305; 88342; J7120; J2405

== ENCOUNTER → 2019-08-15 09:04 | Outpatient (CLI) | payer OTHER, SELFPAY | PROVIDERS: PCP Family Medicine; Referring Provider Family Medicine; Visit Provider Family Medicine | DX: E55.9 Vitamin D deficiency, unspecified (principal) | CPT/HCPCS: 36415 ==

== ENCOUNTER → 2019-12-20 16:49 | Outpatient (CLI) | payer OTHER, SELFPAY ==
[2019-12-20 20:05] LABS: Amphetamine Urine VISTA NEGATIVE (<1000 ng/mL); Barbiturate Urine VISTA NEGATIVE (< 200 ng/mL); Benzodiazepine Urine VISTA NEGATIVE (< 200 ng/mL); Cocaine Urine VISTA NEGATIVE (< 300 ng/mL); Ecstacy Urine VISTA NEGATIVE (< 500 ng/mL); Methadone Urine VISTA NEGATIVE (< 300 ng/mL); PCP Urine VISTA NEGATIVE (< 25 ng/mL); THC Urine VISTA NEGATIVE (< 50 ng/mL); Vista UDS pH Range 6
== END ==
PROVIDERS: PCP Family Medicine; Referring Provider Internal Medicine Pulmonary Disease; Visit Provider Internal Medicine Pulmonary Disease
DX: G47.10 Hypersomnia, unspecified (principal); G47.33 Obstructive sleep apnea (adult) (pediatric)
CPT/HCPCS: 80307

== ENCOUNTER → 2020-05-29 | Outpatient (CLI) | payer OTHER, SELFPAY | END | disposition home or self-care (01) | PROVIDERS: PCP Family Medicine; Visit Provider Family Medicine | DX: J01.90 Acute sinusitis, unspecified (principal) | CPT/HCPCS: 87635; U0003 ==

== ENCOUNTER → 2020-06-24 09:12 | Outpatient (CLI) | payer OTHER, SELFPAY ==
[2020-06-25 07:22] LABS: SARS-COV-2 TOTAL ABS Nonreactive (Nonreactive)
== END ==
PROVIDERS: PCP Family Medicine; Referring Provider Family Medicine; Visit Provider Family Medicine
DX: Z20.828 Contact with and (suspected) exposure to other viral communicable diseases (principal)
CPT/HCPCS: 36415; 86769

== ENCOUNTER → 2020-06-28 08:47 | Outpatient (CLI) | payer OTHER, SELFPAY | PROVIDERS: PCP Family Medicine; Referring Provider Family Medicine; Visit Provider Family Medicine | DX: K21.9 Gastro-esophageal reflux disease without esophagitis (principal); E55.9 Vitamin D deficiency, unspecified; E66.9 Obesity, unspecified | CPT/HCPCS: 36415 ==

== ENCOUNTER → 2020-12-23 13:35 | Outpatient (CLI) | payer OTHER, SELFPAY | PROVIDERS: PCP Family Medicine; Visit Provider Family Medicine | DX: E55.9 Vitamin D deficiency, unspecified (principal); K21.9 Gastro-esophageal reflux disease without esophagitis; E66.9 Obesity, unspecified ==

== ENCOUNTER → 2021-04-15 09:53 | Outpatient (CLI) | payer OTHER, SELFPAY | PROVIDERS: PCP Family Medicine; Referring Provider Family Medicine; Visit Provider Family Medicine | DX: E55.9 Vitamin D deficiency, unspecified (principal); K21.9 Gastro-esophageal reflux disease without esophagitis; E66.9 Obesity, unspecified | CPT/HCPCS: 36415 ==

== ENCOUNTER → 2021-05-12 | Outpatient (CLI) | payer OTHER, SELFPAY | END | disposition home or self-care (01) | PROVIDERS: PCP Family Medicine; Visit Provider Family Medicine | DX: U07.1 COVID-19 (principal) | CPT/HCPCS: 87635; U0005; U0003 ==

== ENCOUNTER → 2021-11-10 | Outpatient (CLI) | payer BC, SELFPAY ==
[2021-11-10 10:02] LABS: Absolute Lymphocyte Count 2.61 X10^3/uL (0.83-4.51); Absolute Neutrophil Count 3.3 X10^3/uL (2.0-7.7); Basophil# 0.06 X10^3/uL; Basophil% 0.9 % (0-1); Eosinophil# 0.12 X10^3/uL; Eosinophils% 1.8 % (0-5); Hematocrit 38.1 % (37-47); Hemoglobin 12.8 g/dL (12.0-15.0); Lymphocyte # 2.61 X10^3/ul (0.83-4.51); Lymphocyte % 40.2 % (19-41); Mean Corp Hgb Conc 33.6 g/dL (32-36); Mean Corpuscular Hgb 30.5 pg (27.0-32.0); Mean Corpuscular Volume 90.9 fL (81-99); Mean Platelet Vol. 9.6 fl (6.2-12.0); Monocyte# 0.37 X10^3/uL; Monocyte% 5.7 % (0-10); NRBC Flagged by Analyzer 0 % (0-5); Neutrophil # 3.32 X10^3/uL (2.7-7.7); Neutrophil % 51.1 % (47-70); Platelet Count 295 K/mm3 (150-450); RBC Distribution Width CV 12.1 % (11.6-14.6); RBC Distribution Width SD 40.3 fl (35.1-43.9); Red Blood Count 4.19 M/mm3 (4.2-5.4); White Blood Count 6.5 K/mm3 (4.4-11.0)
[2021-11-10 10:16] LABS: ALB/GLOB Ratio 0.9 RATIO (0.9-2.4); AST(SGOT) 12 U/L (15-37); Alanine Aminotransfer ALT/SGPT 22 U/L (13-56); Albumin, Serum 3.3 g/dL (3.2-5.0); Alkaline Phosphatase 58 U/L (45-117); Anion Gap 5 (5-15); BUN 12 mg/dL (7-18); BUN/Creat Ratio 16.4 RATIO (10-20); Calcium,Total 8.6 mg/dL (8.5-10.1); Chloride 107 mmol/L (98-107); Creatinine, Serum 0.73 mg/dL (0.55-1.02); EST Glomerular Filtration Rate 94 mL/min (>60); Est Glom Filt Rate - Afr Amer 114 mL/min (>60); Globulin 3.8 g/dL (2.2-4.2); Glucose 96 mg/dL (74-106); Potassium 3.8 mmol/L (3.5-5.1); Protein, Total 7.1 g/dL (6.4-8.2); Sodium Level 139 mmol/L (136-145)
== END | disposition home or self-care (01) ==
LOC: MFPLAB 09:18
PROVIDERS: PCP Family Medicine; Visit Provider Family Medicine
DX: K21.9 Gastro-esophageal reflux disease without esophagitis (principal); E55.9 Vitamin D deficiency, unspecified
CPT/HCPCS: 36415; 80053; 82306; 85025

== ENCOUNTER → 2021-12-02 | Outpatient (CLI) | payer BC, SELFPAY ==
[2021-12-02 12:54] LABS: Cholesterol 230 mg/dL (200); High Density Lipoprotein 65 mg/dL; Triglycerides 133 mg/dL; Very Low Density Lipoprotein 27 mg/dL (5-40)
== END | disposition home or self-care (01) ==
LOC: MFPLAB 10:11
PROVIDERS: Family Medicine; PCP Family Medicine; Referring Provider Family Medicine; Visit Provider Family Medicine
DX: E78.5 Hyperlipidemia, unspecified (principal)
CPT/HCPCS: 36415; 80061

== ENCOUNTER → 2022-04-21 | Outpatient (CLI) | payer BC, SELFPAY ==
[2022-04-21 12:27] LABS: Absolute Lymphocyte Count 2.45 X10^3/uL (0.83-4.51); Absolute Neutrophil Count 2.2 X10^3/uL (2.0-7.7); Basophil# 0.06 X10^3/uL; Basophil% 1.2 % (0-1); Eosinophil# 0.18 X10^3/uL; Eosinophils% 3.5 % (0-5); Hematocrit 39.9 % (37-47); Hemoglobin 13.3 g/dL (12.0-15.0); Lymphocyte # 2.45 X10^3/ul (0.83-4.51); Lymphocyte % 47.1 % (19-41); Mean Corp Hgb Conc 33.3 g/dL (32-36); Mean Corpuscular Hgb 30.9 pg (27.0-32.0); Mean Corpuscular Volume 92.8 fL (81-99); Mean Platelet Vol. 10.2 fl (6.2-12.0); Monocyte# 0.33 X10^3/uL; Monocyte% 6.3 % (0-10); NRBC Flagged by Analyzer 0 % (0-5); Neutrophil # 2.16 X10^3/uL (2.7-7.7); Neutrophil % 41.5 % (47-70); Platelet Count 286 K/mm3 (150-450); RBC Distribution Width CV 12.4 % (11.6-14.6); RBC Distribution Width SD 41.9 fl (35.1-43.9); White Blood Count 5.2 K/mm3 (4.4-11.0)
[2022-04-21 12:48] LABS: ALB/GLOB Ratio 0.8 RATIO (0.9-2.4); AST(SGOT) 15 U/L (15-37); Alanine Aminotransfer ALT/SGPT 19 U/L (13-56); Albumin, Serum 3.2 g/dL (3.2-5.0); Alkaline Phosphatase 68 U/L (45-117); Anion Gap 9 (5-15); BUN 13 mg/dL (7-18); BUN/Creat Ratio 15.6 RATIO (10-20); Calcium,Total 9.4 mg/dL (8.5-10.1); Chloride 105 mmol/L (98-107); Cholesterol 174 mg/dL (200); Creatinine, Serum 0.83 mg/dL (0.55-1.02); EST Glomerular Filtration Rate 81 mL/min (>60); Est Glom Filt Rate - Afr Amer 98 mL/min (>60); Globulin 4.1 g/dL (2.2-4.2); Glucose 92 mg/dL (74-106); High Density Lipoprotein 67 mg/dL; Potassium 4.2 mmol/L (3.5-5.1); Protein, Total 7.3 g/dL (6.4-8.2); Sodium Level 140 mmol/L (136-145); Triglycerides 117 mg/dL; Very Low Density Lipoprotein 23 mg/dL (5-40)
[2022-04-21 13:14] LABS: Vitamin D,25 Hydroxy 35.6 ng/mL
== END | disposition home or self-care (01) ==
LOC: MFPLAB 10:03
PROVIDERS: PCP Family Medicine; Referring Provider Family Medicine; Visit Provider Family Medicine
DX: E78.5 Hyperlipidemia, unspecified (principal); E55.9 Vitamin D deficiency, unspecified
CPT/HCPCS: 36415; 80053; 80061; 82306; 85025

== ENCOUNTER → 2022-10-07 | Outpatient (CLI) | payer BC, SELFPAY ==
[2022-10-07 18:20] LABS: Hematocrit 41.2 % (37-47); Hemoglobin 13.5 g/dL (12.0-15.0); Mean Corp Hgb Conc 32.8 g/dL (32-36); Mean Corpuscular Hgb 29.5 pg (27.0-32.0); Mean Platelet Vol. 10.4 fl (6.2-12.0); Platelet Count 256 K/mm3 (150-450); RBC Distribution Width CV 12.5 % (11.6-14.6); Red Blood Count 4.58 M/mm3 (4.2-5.4)
[2022-10-07 18:47] LABS: ALB/GLOB Ratio 1.2 RATIO (0.9-2.4); AST(SGOT) 14 U/L (15-37); Alanine Aminotransfer ALT/SGPT 29 U/L (13-56); Albumin, Serum 3.9 g/dL (3.2-5.0); Alkaline Phosphatase 62 U/L (45-117); Amylase 60 U/L (25-115); Anion Gap 7 (5-15); BUN 14 mg/dL (7-18); BUN/Creat Ratio 17.7 RATIO (10-20); Calcium,Total 9.4 mg/dL (8.5-10.1); Chloride 105 mmol/L (98-107); Creatinine, Serum 0.79 mg/dL (0.55-1.02); EST Glomerular Filtration Rate 86 mL/min (>60); Est Glom Filt Rate - Afr Amer 104 mL/min (>60); Globulin 3.3 g/dL (2.2-4.2); Glucose 84 mg/dL (74-106); Lipase 192 U/L (73-393); Potassium 4.1 mmol/L (3.5-5.1); Protein, Total 7.2 g/dL (6.4-8.2); Sodium Level 137 mmol/L (136-145)
== END | disposition home or self-care (01) ==
LOC: MFPLAB 15:01
PROVIDERS: PCP Family Medicine; Referring Provider Family Medicine; Visit Provider Nurse Practitioner Family
DX: R10.9 Unspecified abdominal pain (principal)
CPT/HCPCS: 36415; 80053; 82150; 83690; 85027

== ENCOUNTER → 2022-11-03 | Outpatient (CLI) | payer BC, SELFPAY ==
[2022-11-03 10:19] LABS: Vitamin D,25 Hydroxy 50.2 ng/mL
[2022-11-03 10:23] LABS: Cholesterol 144 mg/dL (200); High Density Lipoprotein 46 mg/dL; Triglycerides 95 mg/dL; Very Low Density Lipoprotein 19 mg/dL (5-40)
== END | disposition home or self-care (01) ==
LOC: MFPLAB 09:17
PROVIDERS: PCP Family Medicine; Visit Provider Family Medicine
DX: E78.5 Hyperlipidemia, unspecified (principal); E55.9 Vitamin D deficiency, unspecified
CPT/HCPCS: 36415; 80061; 82306

== ENCOUNTER → 2023-05-05 | Outpatient (CLI) | payer BC, SELFPAY ==
[2023-05-05 10:14] LABS: Absolute Lymphocyte Count 1.55 X10^3/uL (0.83-4.51); Absolute Neutrophil Count 1.7 X10^3/uL (2.0-7.7); Basophil# 0.06 X10^3/uL; Basophil% 1.7 % (0-1); Eosinophil# 0.04 X10^3/uL; Eosinophils% 1.1 % (0-5); Hematocrit 40.3 % (37-47); Lymphocyte # 1.55 X10^3/ul (0.83-4.51); Lymphocyte % 43.1 % (19-41); Mean Corp Hgb Conc 32.3 g/dL (32-36); Mean Corpuscular Hgb 29.6 pg (27.0-32.0); Mean Corpuscular Volume 91.8 fL (81-99); Mean Platelet Vol. 10.3 fl (6.2-12.0); Monocyte# 0.27 X10^3/uL; Monocyte% 7.5 % (0-10); NRBC Flagged by Analyzer 0 % (0-5); Neutrophil # 1.67 X10^3/uL (2.7-7.7); Neutrophil % 46.3 % (47-70); Platelet Count 243 K/mm3 (150-450); RBC Distribution Width CV 12.4 % (11.6-14.6); RBC Distribution Width SD 42.1 fl (35.1-43.9); Red Blood Count 4.39 M/mm3 (4.2-5.4); White Blood Count 3.6 K/mm3 (4.4-11.0)
[2023-05-05 10:48] LABS: ALB/GLOB Ratio 1.2 RATIO (0.9-2.4); AST(SGOT) 11 U/L (15-37); Alanine Aminotransfer ALT/SGPT 22 U/L (13-56); Albumin, Serum 3.9 g/dL (3.2-5.0); Alkaline Phosphatase 68 U/L (45-117); Anion Gap 4 (5-15); BUN 15 mg/dL (7-18); BUN/Creat Ratio 21.1 RATIO (10-20); Calcium,Total 9.3 mg/dL (8.5-10.1); Chloride 107 mmol/L (98-107); Cholesterol 141 mg/dL (200); Creatinine, Serum 0.71 mg/dL (0.55-1.02); EST Glomerular Filtration Rate 97 mL/min (>60); Est Glom Filt Rate - Afr Amer 118 mL/min (>60); Globulin 3.2 g/dL (2.2-4.2); Glucose 93 mg/dL (74-106); High Density Lipoprotein 56 mg/dL; Potassium 4.1 mmol/L (3.5-5.1); Protein, Total 7.1 g/dL (6.4-8.2); Sodium Level 140 mmol/L (136-145); Triglycerides 58 mg/dL; Very Low Density Lipoprotein 12 mg/dL (5-40)
== END | disposition home or self-care (01) ==
LOC: MFPLAB 08:34
PROVIDERS: PCP Family Medicine; Visit Provider Family Medicine
DX: E55.9 Vitamin D deficiency, unspecified (principal); E78.5 Hyperlipidemia, unspecified
CPT/HCPCS: 36415; 80053; 80061; 82306; 85025

== ENCOUNTER → 2023-05-11 | Outpatient (CLI) | payer BC, SELFPAY ==
[2023-05-11 10:49] LABS: T4 Free Direct 0.95 ng/dL (0.76-1.46); Thyroid Stim Hormone (TSH) 0.98 uIU/mL (0.358-3.74)
== END | disposition home or self-care (01) ==
LOC: MFPLAB 09:18
PROVIDERS: PCP Family Medicine; Visit Provider Family Medicine
DX: R68.89 Other general symptoms and signs (principal)
CPT/HCPCS: 36415; 84439; 84443

== ENCOUNTER → 2023-11-05 | Outpatient (CLI) | payer BC, SELFPAY ==
[2023-11-05 12:18] LABS: Absolute Lymphocyte Count 2.17 X10^3/uL (0.83-4.51); Absolute Neutrophil Count 1.9 X10^3/uL (2.0-7.7); Basophil# 0.06 X10^3/uL; Basophil% 1.3 % (0-1); Eosinophil# 0.08 X10^3/uL; Eosinophils% 1.7 % (0-5); Hematocrit 39.9 % (37-47); Hemoglobin 12.9 g/dL (12.0-15.0); Lymphocyte # 2.17 X10^3/ul (0.83-4.51); Lymphocyte % 47.3 % (19-41); Mean Corp Hgb Conc 32.3 g/dL (32-36); Mean Corpuscular Volume 89.7 fL (81-99); Mean Platelet Vol. 10.5 fl (6.2-12.0); Monocyte# 0.33 X10^3/uL; Monocyte% 7.2 % (0-10); NRBC Flagged by Analyzer 0 % (0-5); Neutrophil # 1.93 X10^3/uL (2.7-7.7); Neutrophil % 42.1 % (47-70); Platelet Count 248 K/mm3 (150-450); RBC Distribution Width CV 12.5 % (11.6-14.6); RBC Distribution Width SD 40.9 fl (35.1-43.9); Red Blood Count 4.45 M/mm3 (4.2-5.4); White Blood Count 4.6 K/mm3 (4.4-11.0)
[2023-11-05 12:48] LABS: Vitamin D,25 Hydroxy 30.9 ng/mL
[2023-11-05 13:18] LABS: ALB/GLOB Ratio 1.1 RATIO (0.9-2.4); AST(SGOT) 8 U/L (15-37); Alanine Aminotransfer ALT/SGPT 19 U/L (13-56); Albumin, Serum 3.8 g/dL (3.2-5.0); Alkaline Phosphatase 69 U/L (45-117); Anion Gap 6 (5-15); BUN 13 mg/dL (7-18); BUN/Creat Ratio 17.4 RATIO (10-20); Calcium,Total 9.4 mg/dL (8.5-10.1); Chloride 106 mmol/L (98-107); Cholesterol 159 mg/dL (200); Creatinine, Serum 0.75 mg/dL (0.55-1.02); EST Glomerular Filtration Rate 91 mL/min (>60); Est Glom Filt Rate - Afr Amer 110 mL/min (>60); Globulin 3.4 g/dL (2.2-4.2); Glucose 85 mg/dL (74-106); High Density Lipoprotein 72 mg/dL; Protein, Total 7.2 g/dL (6.4-8.2); Sodium Level 138 mmol/L (136-145); Triglycerides 49 mg/dL; Very Low Density Lipoprotein 10 mg/dL (5-40)
== END | disposition home or self-care (01) ==
LOC: MFPLAB 09:58
PROVIDERS: PCP Family Medicine; Visit Provider Family Medicine
DX: E78.5 Hyperlipidemia, unspecified (principal); E55.9 Vitamin D deficiency, unspecified
CPT/HCPCS: 36415; 80053; 80061; 82306; 85025

== ENCOUNTER → 2024-04-18 | Outpatient (CLI) | payer BC, SELFPAY ==
[2024-04-18 10:18] LABS: Absolute Lymphocyte Count 1.43 X10^3/uL (0.83-4.51); Basophil# 0.04 X10^3/uL; Basophil% 1.1 % (0-1); Eosinophil# 0.05 X10^3/uL; Eosinophils% 1.3 % (0-5); Hematocrit 39.1 % (37-47); Hemoglobin 12.5 g/dL (12.0-15.0); Lymphocyte # 1.43 X10^3/ul (0.83-4.51); Lymphocyte % 37.7 % (19-41); Mean Corpuscular Hgb 27.8 pg (27.0-32.0); Mean Corpuscular Volume 86.9 fL (81-99); Mean Platelet Vol. 10.4 fl (6.2-12.0); Monocyte# 0.28 X10^3/uL; Monocyte% 7.4 % (0-10); NRBC Flagged by Analyzer 0 % (0-5); Neutrophil # 1.98 X10^3/uL (2.7-7.7); Neutrophil % 52.2 % (47-70); Platelet Count 246 K/mm3 (150-450); RBC Distribution Width CV 12.6 % (11.6-14.6); White Blood Count 3.8 K/mm3 (4.4-11.0)
[2024-04-18 12:56] LABS: Vitamin D,25 Hydroxy 29.4 ng/mL
[2024-04-18 13:26] LABS: ALB/GLOB Ratio 1.1 RATIO (0.9-2.4); AST(SGOT) 11 U/L (15-37); Alanine Aminotransfer ALT/SGPT 20 U/L (13-56); Albumin, Serum 3.8 g/dL (3.2-5.0); Alkaline Phosphatase 78 U/L (45-117); Anion Gap 8 (5-15); BUN 16 mg/dL (7-18); BUN/Creat Ratio 22.3 RATIO (10-20); Calcium,Total 9.8 mg/dL (8.5-10.1); Chloride 102 mmol/L (98-107); Cholesterol 153 mg/dL (200); Creatinine, Serum 0.72 mg/dL (0.55-1.02); EST Glomerular Filtration Rate 96 mL/min (>60); Est Glom Filt Rate - Afr Amer 116 mL/min (>60); Globulin 3.5 g/dL (2.2-4.2); Glucose 82 mg/dL (74-106); High Density Lipoprotein 71 mg/dL; Potassium 4.6 mmol/L (3.5-5.1); Protein, Total 7.3 g/dL (6.4-8.2); Sodium Level 137 mmol/L (136-145); Triglycerides 79 mg/dL; Very Low Density Lipoprotein 16 mg/dL (5-40)
== END | disposition home or self-care (01) ==
LOC: MFPLAB 09:34
PROVIDERS: PCP Family Medicine; Referring Provider Family Medicine; Visit Provider Family Medicine
DX: E78.5 Hyperlipidemia, unspecified (principal); E66.9 Obesity, unspecified; E55.9 Vitamin D deficiency, unspecified
CPT/HCPCS: 36415; 80053; 80061; 82306; 85025

== ENCOUNTER → 2025-05-08 | Outpatient (CLI) | payer BC, SELFPAY ==
[2025-05-08 12:32] LABS: Hematocrit 33.5 % (37-47); Hemoglobin 10.4 g/dL (12.0-15.0); Immature Granulocytes Count 0.010 X10^3/uL (0.0-0.0); Mean Corp Hgb Conc 31.0 g/dL (32-36); Mean Corpuscular Volume 76.8 fL (81-99); Mean Platelet Vol. 10.4 fl (6.2-12.0); NRBC Flagged by Analyzer 0 % (0-5); Platelet Count 261 K/mm3 (150-450); RBC Distribution Width CV 15.9 % (11.6-14.6); RBC Distribution Width SD 44.9 fl (35.1-43.9); Red Blood Count 4.36 M/mm3 (4.2-5.4); White Blood Count 3.8 K/mm3 (4.4-11.0)
[2025-05-08 13:24] LABS: AST(SGOT) 20 U/L (<=31); Alanine Aminotransfer ALT/SGPT 20 U/L (<=34); Albumin, Serum 4.4 g/dL (3.5-5.0); Alkaline Phosphatase 70 U/L (35-104); Anion Gap 10 (5-15); BUN 12 mg/dL (4-19); BUN/Creat Ratio 15.4 RATIO (10-20); Calcium,Total 9.7 mg/dL (7.6-11.0); Carbon Dioxide 25.8 mmol/L (21.0-32.0); Chloride 103 mmol/L (98-108); Cholesterol 144 mg/dL (<=200); Globulin 2.8 g/dL (2.2-4.2); Glucose 92 mg/dL (70-99); Low Density Lipoprotein Calc. 66 mg/dL; Potassium 4.2 mmol/L (3.3-5.1); Triglycerides 51 mg/dL; Very Low Density Lipoprotein 10 mg/dL (5-40); Vitamin D,25 Hydroxy 43.0 ng/mL (30-100); cholesterol:hdl ratio screen 2.15
[2025-05-09 13:33] LABS: Ferritin 9 ng/mL (22-378)
[2025-05-09 13:56] LABS: Iron 18 ug/dL (50-170); Iron Binding Capacity,Unsat 441 ug/dL (228-428)
[2025-05-09 14:10] LABS: Iron Binding Capacity,Total 459 ug/dL (250-450)
== END | disposition home or self-care (01) ==
LOC: MFPLAB 10:10
PROVIDERS: PCP Family Medicine; Visit Provider Family Medicine
DX: D64.9 Anemia, unspecified (principal); E66.9 Obesity, unspecified
CPT/HCPCS: 36415; 80053; 80061; 82306; 82728; 83540; 83550; 85025